=== PATIENT | female | born 1990 | race Caucasian/White ===

== ENCOUNTER 2018-09-15 08:02 | Observation (INO) ==
--- NOTE | 2018-09-15 08:15 | Emergency Department Note ---
Disposition Clinical Impression: Syncope Qualifiers: Encounter type: initial encounter Qualified Code(s): T67.1XXA - Disposition: Admitted As Inpatient Condition: Good Time of Disposition: 18:29 General Adult HPI - General Chief complaint: ED Seizure Stated complaint: Seizure Time Seen by Provider: 09/15/18 08:10 Source: patient, EMS Mode of arrival: EMS Limitations: no limitations Nursing Notes Reviewed: Yes Vital Signs Reviewed: Yes - History of Present Illness HPI Narrative: Patient is a 28-year-old female with past medical history of anxiety. She presents today via EMS due to possible syncope versus seizure. Patient states that she was on Wellbutrin until about a week and a half ago. She was transitioned over to Cymbalta 1 week ago. Today, she was up getting her kids ready for school. She was in her child's bedroom. She started to feel lightheaded, lower herself to her knees and then lost consciousness. She denied any chest pain, shortness of breath, palpitations, numbness tingling or weakness prior to this episode. Her children witnessed this event but are not present upon her arrival. She was unsure of any details while she was out or how long she was out, if she had any tonic-clonic activity. She denies any loss of bowel or bladder control, denies biting her time. She said she felt confused for a l ittle better after the event and then now currently has no symptoms other than a generalized headache. Denies any numbness, tingling, weakness, testing, shortness of breath, nausea, vomiting, fevers. No prior history of seizures. She denies any chance of . - Related Data Home Medications Medication Instructions Recorded Confirmed DULoxetine [Cymbalta] 30 mg PO DAILY 09/15/18 09/15/18 Paroxetine HCl [Paxil] 20 mg PO DAILY 09/15/18 09/15/18 RX: hydrOXYzine HCl [Hydroxyzine 25 mg PO TID PRN 09/15/18 09/15/18 HCl] Allergies Allergy/AdvReac Type Severity Reaction Status Date / Time meperidine [From Demerol] AdvReac See Verified 09/15/18 11:01 Comments All systems ED: reviewed and negative except as stated. Constitutional: Denies: fever Cardiovascular: Denies: chest pain Respiratory: Denies: cough, dyspnea Gastrointestinal: Denies: abdominal pain, nausea, vomiting, diarrhea Genitourinary: Denies: urgency Integumentary: Denies: rash Neurological: Reports: headache, other (Syncope versus seizure). Denies: numbness Psychiatric: Reports: anxiety Past Medical History - Past Medical History Attestation: Yes The following information was validated with the patient. 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 - Social History Smoking Status: Never smoker Smokeless Tobacco Status: No Alcohol use: Reports: none Drug use: Reports: none Physical Exam - General Limitations: no limitations General appearance: alert, in no apparent distress - Head Head exam: atraumatic, normocephalic, normal inspection - Eye Eye exam: Present: normal appearance, PERRL, EOMI - ENT ENT exam: normal exam, normal oropharynx, mucous membranes moist - Neck Neck exam: Present: normal inspection, full ROM, trachea midline - Chest Chest inspection: Present: normal inspection, symmetric chest wall rise - Respiratory Respiratory exam: Present: normal lung sounds bilaterally - Cardiovascular Cardiovascular exam: Present: regular rate, normal rhythm, normal heart sounds - Abdominal Exam Abdominal exam: Present: soft, Non-Tender. Absent: tenderness, distention, guarding, rebound, rigidity - Extremities Exam Extremities exam: Present: normal inspection, full ROM. Absent: tenderness, pedal edema - Neurological Exam Neurological exam: Present: alert, oriented X3, CN II-XII intact. Absent: motor sensory deficit - Expanded Neurological Exam Patient oriented to: Present: person, place, time Speech: Present: fluid speech Cranial nerves: EOM function (II, III, IV, ): Normal, facial sensation (V): Normal, facial palsy (VII): Normal, spinal accessory function (XI): Normal, tongue deviation (XII): Normal Cerebellar function: finger to nose: Normal Motor strength - LUE: 5/5 Motor strength - RUE: 5/5 Motor strength - LLE: 5/5 Motor strength - RLE: 5/5 Sensory exam upper extremity: light touch: Normal Sensory exam lower extremity: light touch: Normal Coma Scale Eye Opening: Spontaneous Coma Scale Motor Response: Obeys Commands Coma Scale Verbal Response: Oriented Coma Scale Total: 15 - Psychiatric Psychiatric exam: Present: normal affect, normal mood - Skin Skin exam: Present: warm, dry, intact, normal color Course Course Narrative: Vitals within normal limits. No focal neurologic deficits. Heart regular rate and rhythm, lungs clear to auscultation, abdomen soft and nontender. GCS 15. We will go ahead and order EKG, chest x-ray, basic blood work, troponin. EKG #1. 09/15/2018 at 08:09. Sinus rhythm. Rate 81. QRS 86. TX 138. QTC 422. Normal axis. No acute ST elevation or depression. Chest x-ray negative for any acute abnormality. No major lab abnormality. I spoke with Dr. العراقي about the patient's presentation. She did have another episode in the ED where she had some intermittent shaking of upper extremities that was more of a generalized tremor. She was immediately alert and oriented after this episode without any confusion. No focal neurologic deficits. I spoke with Dr. العراقي and he recommended obtaining MRI of head and brain with and without contrast. I discussed this with the patient and she was not comfortable with going home. We talked about admission. Dr. العراقي stated that if she was admitted, he would likely do an EEG. We will admit the patient for MRI and EEG. Patient has been accepted by hospitalist. Chest X-Ray 09/15/18 08:14 IMPRESSION: No acute abnormality. D/ / 09/15/2018 09:27:14 Sohail Villagomez MD / Gladis Osuna Interpreting Provider: Sohail Villagomez MD Brain MRI 09/15/18 10:31 IMPRESSION: Normal MRI of the brain without and with contrast. No evidence of mesial temporal sclerosis. No intracranial abnormality. D/ / Priscilla Rayo MD / Priscilla Rayo MD Interpreting Provider: Priscilla Rayo MD Vital Signs Temperature 98.2 F 09/15/18 08:07 Pulse Rate 81 09/15/18 08:07 Respiratory Rate 18 09/15/18 08:07 Blood Pressure 122/81 09/15/18 08:07 O2 Sat by Pulse Oximetry 99 09/15/18 08:07 Temperature 98.2 F 09/15/18 13:18 Pulse Rate 90 09/15/18 14:05 Respiratory Rate 17 09/15/18 13:18 Blood Pressure 103/70 09/15/18 13:18 O2 Sat by Pulse Oximetry 98 09/15/18 14:05 Oxygen Delivery Oxygen Delivery Room Air Medical Decision Making - [facility] Narrative Medical decision making narrative: Vitals within normal limits. No focal neurologic deficits. Heart regular rate and rhythm, lungs clear to auscultation, abdomen soft and nontender. GCS 15. We will go ahead and order EKG, chest x-ray, basic blood work, troponin. EKG #1. 09/15/2018 at 08:09. Sinus rhythm. Rate 81. QRS 86. TX 138. QTC 422. Normal axis. No acute ST elevation or depression. Chest x-ray negative for any acute abnormality. No major lab abnormality. I spoke with Dr. العراقي about the patient's presentation. She did have another episode in the ED where she had some intermittent shaking of upper extremities that was more of a generalized tremor. She was immediately alert and oriented after this episode without any confusion. No focal neurologic deficits. I spoke with Dr. العراقي and he recommended obtaining MRI of head and brain with and without contrast. I discussed this with the patient and she was not comfortable with going home. We talked about admission. Dr. العراقي stated that if she was admitted, he would likely do an EEG. We will admit the patient for MRI and EEG. Patient has been accepted by hospitalist. - Medical Records Medical records reviewed: Yes I reviewed the patient's medical records. - Lab Data Lab results reviewed: Yes I reviewed the patient's lab results. Result diagrams: 09/15/18 08:26 09/15/18 08:26 Lab Results 09/15/18 09/15/18 09/15/18 Range/Units 08:20 08:22 08:26 WBC 5.2 (4.3-11.1) K/mcL RBC 4.19 (3.82-4.97) M/mcL Hgb 13.2 (11.5-15.4) g/dL Hct 39.2 (35.3-44.9) % MCV 93.6 (83.0-100.0) fL MCH 31.5 (28.0-33.3) pg MCHC 33.7 (31.6-35.5) g/dL RDW 11.1 L (11.5-14.5) % Plt Count 236 (140-400) K/mcL MPV 9.7 (9.4-12.4) fL Immature Gran % 0.2 (0-4) % Seg Neutrophils % 60.1 % Lymphocytes % 31.7 % Monocytes % 6.2 % Eosinophils % 1.0 % Basophils % 0.8 % Neutrophils # 3.1 (1.6-8.9) K/mcL Lymphocytes # 1.7 (0.6-4.6) K/mcL Monocytes # 0.3 (0.0-1.3) K/mcL Eosinophils # 0.1 (0.0-0.6) K/mcL Basophils # 0.0 (0.0-0.2) K/mcL PT (9.4-12.1) Seconds INR APTT (26.0-36.0) Seconds Sodium (136-145) mEq/L Potassium (3.5-5.1) mEq/L Chloride (98-107) mEq/L Carbon Dioxide (23-29) mEq/L BUN (6-20) mg/dL Creatinine (0.60-1.20) mg/dL Est GFR ( Amer) (> 60) Est GFR (Non-Af Amer) (> 60) BUN/Creatinine Ratio (6-26) Glucose (70-105) mg/dL Calculated Osmolality (280-300) Calcium (8.6-10.3) mg/dL Creatine Kinase (30-223) Units/L Troponin I (< 0.04) ng/mL Urine Color Yellow (Yellow) Urine Clarity Turbid A (Clear) Urine pH 7.5 (5.0-8.0) pH Units Ur Specific [place] 1.010 (1.010-1.025) Urine Protein Negative (Neg-Trace) mg/dL Urine Glucose (UA) Normal (Normal) mg/dL Urine Ketones Negative (Negative) mg/dL Urine Blood Moderate H (Negative) Urine Nitrite Negative (Negative) Urine Bilirubin Negative (Negative) Urine Urobilinogen Normal (Normal) mg/dL Ur Leukocyte Esterase Moderate H (Negative) Urine Microscopic RBC 0-3 (0-3) per hpf Urine Microscopic WBC 15-30 H (0-3) per hpf Ur Squamous Epith Cells Many H (None-Few) per lpf Amorphous Sediment Many H (Few) Urine Bacteria Many H (None-Few) per hpf Ur Culture Indicated? NO. A (NO) Urine Test Negative (Negative) 09/15/18 09/15/18 09/15/18 Range/Units 08:26 08:26 08:26 WBC (4.3-11.1) K/mcL RBC (3.82-4.97) M/mcL Hgb (11.5-15.4) g/dL Hct (35.3-44.9) % MCV (83.0-100.0) fL MCH (28.0-33.3) pg MCHC (31.6-35.5) g/dL RDW (11.5-14.5) % Plt Count (140-400) K/mcL MPV (9.4-12.4) fL Immature Gran % (0-4) % Seg Neutrophils % % Lymphocytes % % Monocytes % % Eosinophils % % Basophils % % Neutrophils # (1.6-8.9) K/mcL Lymphocytes # (0.6-4.6) K/mcL Monocytes # (0.0-1.3) K/mcL Eosinophils # (0.0-0.6) K/mcL Basophils # (0.0-0.2) K/mcL PT 12.5 H (9.4-12.1) Seconds INR 1.1 APTT 34.4 (26.0-36.0) Seconds Sodium 140 (136-145) mEq/L Potassium 3.9 (3.5-5.1) mEq/L Chloride 106 (98-107) mEq/L Carbon Dioxide 27 (23-29) mEq/L BUN 8 (6-20) mg/dL Creatinine 0.62 (0.60-1.20) mg/dL Est GFR ( Amer) > 60 (> 60) Est GFR (Non-Af Amer) > 60 (> 60) BUN/Creatinine Ratio 13 (6-26) Glucose 95 (70-105) mg/dL Calculated Osmolality 288 (280-300) Calcium 9.5 (8.6-10.3) mg/dL Creatine Kinase 56 (30-223) Units/L Troponin I < 0.03 (< 0.04) ng/mL Urine Color (Yellow) Urine Clarity (Clear) Urine pH (5.0-8.0) pH Units Ur Specific [place] (1.010-1.025) Urine Protein (Neg-Trace) mg/dL Urine Glucose (UA) (Normal) mg/dL Urine Ketones (Negative) mg/dL Urine Blood (Negative) Urine Nitrite (Negative) Urine Bilirubin (Negative) Urine Urobilinogen (Normal) mg/dL Ur Leukocyte Esterase (Negative) Urine Microscopic RBC (0-3) per hpf Urine Microscopic WBC (0-3) per hpf Ur Squamous Epith Cells (None-Few) per lpf Amorphous Sediment (Few) Urine Bacteria (None-Few) per hpf Ur Culture Indicated? (NO) Urine Test (Negative) - Radiology Data Radiology results reviewed: Yes I reviewed the patient's radiology results.
--- NOTE | 2018-09-15 08:22 | Emergency Department Note ---
Disposition Clinical Impression: Blackout spell Disposition: Still a Patient Forms: ED Satisfaction Letter General Adult HPI - General Chief complaint: ED Seizure Stated complaint: Seizure Time Seen by Provider: 09/15/18 08:10 Source: EMS Limitations: no limitations - History of Present Illness Pain Scale: 0 - Related Data Home Medications Medication Instructions Recorded Confirmed Amitriptyline 08/28/15 08/28/15 Zoloft 08/28/15 08/28/15 Previous Rx's Medication Instructions Recorded Phenazopyridine HCl [Pyridium] 200 mg PO TID PRN #21 tablet 12/09/16 levoFLOXacin [Levaquin] 500 mg PO DAILY #7 tablet 12/09/16 Nitrofurantoin (BID) [Macrobid] 100 mg PO BID #14 capsule 06/21/17 Ondansetron [Zofran ODT] 8 mg SL TID PRN #12 tab.rapdis 06/21/17 Sucralfate [Carafate] 1 gm PO QIDAC #120 tablet 06/21/17 Ciprofloxacin [Cipro] 500 mg PO BID #14 tablet 08/06/17 Phenazopyridine HCl [Pyridium] 200 mg PO TIDAC #9 tab 08/06/17 Allergies Allergy/AdvReac Type Severity Reaction Status Date / Time meperidine [From Demerol] AdvReac See Verified 03/10/18 09:59 Comments Past Medical History - Past Medical History Medical history: Reports: no medical history, other Psychiatric history: Reports: anxiety 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 - Social History Smoking Status: Never smoker Smokeless Tobacco Status: No Alcohol use: Reports: none Drug use: Reports: none Physical Exam - General Limitations: no limitations General appearance: alert, in no apparent distress Course Vital Signs Temperature 98.2 F 09/15/18 08:07 Pulse Rate 81 09/15/18 08:07 Respiratory Rate 18 09/15/18 08:07 Blood Pressure 122/81 09/15/18 08:07 O2 Sat by Pulse Oximetry 99 09/15/18 08:07 Temperature 98.2 F 09/15/18 08:07 Pulse Rate 81 09/15/18 08:07 Respiratory Rate 18 09/15/18 08:07 Blood Pressure 122/81 09/15/18 08:07 O2 Sat by Pulse Oximetry 99 09/15/18 08:07 Oxygen Delivery Oxygen Delivery Room Air Attestation Statement - Attestation Attestation: I examined this patient and my medical decision-making was reviewed with the Resident Physician. I agree with the documented findings, disposition and treatment plan as described except to the extent set forth below. 28-year-old female presented to the ER for syncopal episode versus seizure activity. She states she has been under a lot of stress raising for kids by herself. This morning she sort of fell down toward knees and had an unresponsive episode. She denies any bowel or bladder incontinence. She denies any biting of the tongue. She did not really have a post ictal state. She has never had a seizure before. There is been recent change in her medications from Wellbutrin to Cymbalta in the last week. She takes this for depression and anxiety. She denies any active chest pain at this time. No shortness of breath. EKG was normal check screening labs
[2018-09-15 08:33] LABS: Bilirubin,Urine Negative (Negative); Blood,Urine Moderate (Negative); Clarity,Urine Turbid (Clear); Color,Urine Yellow (Yellow); Glucose,Urine (UA) Normal (Normal); Ketones,Urine Negative (Negative); Leukocyte Esterase,Urine Moderate (Negative); Nitrite,Urine Negative (Negative); PH,Urine 7.5 pH Units (5.0-8.0); Protein,Urine Negative (Neg-Trace); Urobilinogen,Urine Normal (Normal)
[2018-09-15 08:34] LABS: Bacteria,Urine Many per hpf (None-Few); Squamous Epithelial Cell,Urine Many per lpf (None-Few); WBC,Urine 15-30 per hpf (0-3)
[2018-09-15 08:46] LABS: Basophils % 0.8 %; Eosinophils # 0.1 K/mcL (0.0-0.6); Hematocrit 39.2 % (35.3-44.9); Hemoglobin 13.2 g/dL (11.5-15.4); Immature Granulocytes % 0.2 % (0-4); Lymphocytes # 1.7 K/mcL (0.6-4.6); Lymphocytes % 31.7 %; Mean Corpuscular HGB Conc 33.7 g/dL (31.6-35.5); Mean Corpuscular Hemoglobin 31.5 pg (28.0-33.3); Mean Corpuscular Volume 93.6 fL (83.0-100.0); Mean Platelet Volume 9.7 fL (9.4-12.4); Monocytes # 0.3 K/mcL (0.0-1.3); Monocytes % 6.2 %; Neutrophils # 3.1 K/mcL (1.6-8.9); Platelet Count 236 K/mcL (140-400); Red Blood Count 4.19 M/mcL (3.82-4.97); Red Cell Distribution Width 11.1 % (11.5-14.5); Segmented Neutrophils % 60.1 %
[2018-09-15 08:56] LABS: INR 1.1; Prothrombin Time 12.5 Seconds (9.4-12.1)
[2018-09-15 08:57] LABS: Amorphous Sediment,Urine Many (Few)
[2018-09-15 08:58] LABS: Activated Partial Thrombo Time 34.4 Seconds (26.0-36.0)
[2018-09-15 08:58] LABS: RBC,Urine 0-3 per hpf (0-3)
[2018-09-15 09:08] LABS: BUN/Creatinine Ratio 13 (6-26); Blood Urea Nitrogen 8 mg/dL (6-20); Calcium 9.5 mg/dL (8.6-10.3); Carbon Dioxide 27 mEq/L (23-29); Chloride 106 mEq/L (98-107); Glucose 95 mg/dL (70-105); Osmolality,Calculated 288 (280-300); Potassium 3.9 mEq/L (3.5-5.1); Sodium 140 mEq/L (136-145); eGFR For Non-African Americans > 60 (> 60)
[2018-09-15 09:09] LABS: Troponin I < 0.03 ng/mL (< 0.04)
--- NOTE | 2018-09-15 09:54 | Emergency Department Note ---
Disposition Clinical Impression: Blackout spell Disposition: Still a Patient Referrals: Hieu Cash MD [Primary Care Provider] - Forms: ED Satisfaction Letter General Adult HPI - General Chief complaint: ED Seizure Stated complaint: Seizure Time Seen by Provider: 09/15/18 08:10 Source: patient, EMS Mode of arrival: EMS Limitations: no limitations Nursing Notes Reviewed: Yes Vital Signs Reviewed: Yes - History of Present Illness HPI Narrative: ED ATTESTATION NOTE: I examined this patient and my medical decision-making was reviewed with the Resident Physician/SAFETY DIRECTOR/PA/Student. I have personally performed a face to face evaluation on this patient & I agree with the documented findings, disposition and treatment plan as described except to the extent set forth below. Patient was seen with emergency medicine resident Dr. Andrei Monique please see copy of his note for details of this encounter Briefly: 28-year-old female history of anxiety otherwise healthy no prior history of seizure disorder had supported be a seizure episode this morning with her right hand clenching and flexing 90 degrees the elbow, beating on her chest. The mother is accompanying the patient showed is from video which were reviewed. And then the resident of observe this in the ER during her evaluation. However upon further questioning she appeared to be oriented and responded appropriately. Lab work is within normal limits urinalysis is being sent for culture 15-30 WBCs per high-power field but no dysuria. Neurology is consulted. Disposition pending. Pain Scale: 5 - Related Data Home Medications Medication Instructions Recorded Confirmed Amitriptyline 08/28/15 08/28/15 Zoloft 08/28/15 08/28/15 Previous Rx's Medication Instructions Recorded Phenazopyridine HCl [Pyridium] 200 mg PO TID PRN #21 tablet 12/09/16 levoFLOXacin [Levaquin] 500 mg PO DAILY #7 tablet 12/09/16 Nitrofurantoin (BID) [Macrobid] 100 mg PO BID #14 capsule 06/21/17 Ondansetron [Zofran ODT] 8 mg SL TID PRN #12 tab.rapdis 06/21/17 Sucralfate [Carafate] 1 gm PO QIDAC #120 tablet 06/21/17 Ciprofloxacin [Cipro] 500 mg PO BID #14 tablet 08/06/17 Phenazopyridine HCl [Pyridium] 200 mg PO TIDAC #9 tab 08/06/17 Allergies Allergy/AdvReac Type Severity Reaction Status Date / Time meperidine [From Demerol] AdvReac See Verified 03/10/18 09:59 Comments Constitutional: Denies: fever Cardiovascular: Denies: chest pain Respiratory: Denies: cough, dyspnea Gastrointestinal: Denies: abdominal pain, nausea, vomiting, diarrhea Genitourinary: Denies: urgency Integumentary: Denies: rash Neurological: Reports: headache, other (Syncope versus seizure). 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 - Social History Smoking Status: Never smoker Smokeless Tobacco Status: No Alcohol use: Reports: none Drug use: Reports: none Physical Exam - General Limitations: no limitations General appearance: alert, in no apparent distress Course Vital Signs Temperature 98.2 F 09/15/18 08:07 Pulse Rate 81 09/15/18 08:07 Respiratory Rate 18 09/15/18 08:07 Blood Pressure 122/81 09/15/18 08:07 O2 Sat by Pulse Oximetry 99 09/15/18 08:07 Temperature 98.2 F 09/15/18 08:07 Pulse Rate 75 09/15/18 09:46 Respiratory Rate 18 09/15/18 08:07 Blood Pressure 120/91 09/15/18 09:46 O2 Sat by Pulse Oximetry 97 09/15/18 09:46 Oxygen Delivery Oxygen Delivery Room Air Medical Decision Making - Lab Data Result diagrams: 09/15/18 08:26 09/15/18 08:26 Lab Results 09/15/18 09/15/18 09/15/18 Range/Units 08:20 08:22 08:26 WBC 5.2 (4.3-11.1) K/mcL RBC 4.19 (3.82-4.97) M/mcL Hgb 13.2 (11.5-15.4) g/dL Hct 39.2 (35.3-44.9) % MCV 93.6 (83.0-100.0) fL MCH 31.5 (28.0-33.3) pg MCHC 33.7 (31.6-35.5) g/dL RDW 11.1 L (11.5-14.5) % Plt Count 236 (140-400) K/mcL MPV 9.7 (9.4-12.4) fL Immature Gran % 0.2 (0-4) % Seg Neutrophils % 60.1 % Lymphocytes % 31.7 % Monocytes % 6.2 % Eosinophils % 1.0 % Basophils % 0.8 % Neutrophils # 3.1 (1.6-8.9) K/mcL Lymphocytes # 1.7 (0.6-4.6) K/mcL Monocytes # 0.3 (0.0-1.3) K/mcL Eosinophils # 0.1 (0.0-0.6) K/mcL Basophils # 0.0 (0.0-0.2) K/mcL PT (9.4-12.1) Seconds INR APTT (26.0-36.0) Seconds Sodium (136-145) mEq/L Potassium (3.5-5.1) mEq/L Chloride (98-107) mEq/L Carbon Dioxide (23-29) mEq/L BUN (6-20) mg/dL Creatinine (0.60-1.20) mg/dL Est GFR ( Amer) (> 60) Est GFR (Non-Af Amer) (> 60) BUN/Creatinine Ratio (6-26) Glucose (70-105) mg/dL Calculated Osmolality (280-300) Calcium (8.6-10.3) mg/dL Troponin I (< 0.04) ng/mL Urine Color Yellow (Yellow) Urine Clarity Turbid A (Clear) Urine pH 7.5 (5.0-8.0) pH Units Ur Specific [place] 1.010 (1.010-1.025) Urine Protein Negative (Neg-Trace) mg/dL Urine Glucose (UA) Normal (Normal) mg/dL Urine Ketones Negative (Negative) mg/dL Urine Blood Moderate H (Negative) Urine Nitrite Negative (Negative) Urine Bilirubin Negative (Negative) Urine Urobilinogen Normal (Normal) mg/dL Ur Leukocyte Esterase Moderate H (Negative) Urine Microscopic RBC 0-3 (0-3) per hpf Urine Microscopic WBC 15-30 H (0-3) per hpf Ur Squamous Epith Cells Many H (None-Few) per lpf Amorphous Sediment Many H (Few) Urine Bacteria Many H (None-Few) per hpf Ur Culture Indicated? NO. A (NO) Urine Test Negative (Negative) 09/15/18 09/15/18 Range/Units 08:26 08:26 WBC (4.3-11.1) K/mcL RBC (3.82-4.97) M/mcL Hgb (11.5-15.4) g/dL Hct (35.3-44.9) % MCV (83.0-100.0) fL MCH (28.0-33.3) pg MCHC (31.6-35.5) g/dL RDW (11.5-14.5) % Plt Count (140-400) K/mcL MPV (9.4-12.4) fL Immature Gran % (0-4) % Seg Neutrophils % % Lymphocytes % % Monocytes % % Eosinophils % % Basophils % % Neutrophils # (1.6-8.9) K/mcL Lymphocytes # (0.6-4.6) K/mcL Monocytes # (0.0-1.3) K/mcL Eosinophils # (0.0-0.6) K/mcL Basophils # (0.0-0.2) K/mcL PT 12.5 H (9.4-12.1) Seconds INR 1.1 APTT 34.4 (26.0-36.0) Seconds Sodium 140 (136-145) mEq/L Potassium 3.9 (3.5-5.1) mEq/L Chloride 106 (98-107) mEq/L Carbon Dioxide 27 (23-29) mEq/L BUN 8 (6-20) mg/dL Creatinine 0.62 (0.60-1.20) mg/dL Est GFR ( Amer) > 60 (> 60) Est GFR (Non-Af Amer) > 60 (> 60) BUN/Creatinine Ratio 13 (6-26) Glucose 95 (70-105) mg/dL Calculated Osmolality 288 (280-300) Calcium 9.5 (8.6-10.3) mg/dL Troponin I < 0.03 (< 0.04) ng/mL Urine Color (Yellow) Urine Clarity (Clear) Urine pH (5.0-8.0) pH Units Ur Specific [place] (1.010-1.025) Urine Protein (Neg-Trace) mg/dL Urine Glucose (UA) (Normal) mg/dL Urine Ketones (Negative) mg/dL Urine Blood (Negative) Urine Nitrite (Negative) Urine Bilirubin (Negative) Urine Urobilinogen (Normal) mg/dL Ur Leukocyte Esterase (Negative) Urine Microscopic RBC (0-3) per hpf Urine Microscopic WBC (0-3) per hpf Ur Squamous Epith Cells (None-Few) per lpf Amorphous Sediment (Few) Urine Bacteria (None-Few) per hpf Ur Culture Indicated? (NO) Urine Test (Negative)
[2018-09-15] MEDS ORDERED: Gadolinium Contrast Agent (WT Based) IV PRN (10:31)
[2018-09-15] MEDS ORDERED: Naloxone 0.4 MG/ML INJ IVP PRN (11:15)
[2018-09-15] MEDS ORDERED: *HR* LORazepam 2 MG/ML VIAL IVP PRN (11:19)
--- NOTE | 2018-09-15 11:34 | Internal Med History&Physical ---
Date of Encounter: 09/15/18 Time of Encounter: 11:28 Internal Medicine - H&P: HPI Chief complaint: Seizures Admitted From: Home Plans for Post Hospital Care: Home History of present illness: Ms. Borrero is a 28 year old female with history of depression presented to the emergency department with complaint of seizures. As per patient she was waking up her children this morning and suddenly felt dizzy and lowered herself to the ground. She cannot recall what happened after she lowered herself to the ground until she woke up surrounded by her children. Her children videotaped the events and it shows that the patient was shaking her left upper extremity, eyes were closed and she was not responding to their questions. Seizure broke by itself after a few seconds. She was confused when she woke up however she does remember the events now. She denies tongue biting, foaming at the mouth, incontinence. She denies head trauma, similar symptoms, vision changes, palpitations or diaphoresis associated with the event. She has had no recent fevers, chills, dysuria, upper respiratory tract infections, sick contacts, leg edema, calf tenderness As per patient for depression she was on Wellbutrin until about a week and a half ago when her physician started her on Cymbalta. She denies similar symptoms on either medications. Mother is at bedside she reports that she has 2 siblings with seizure disorder. In the emergency department neurology was consulted and recommended MRI of the head with and without contrast, no antiepileptic drugs were recommended at this time. Neurology will follow-up the patient during admission with further recommendations. Past Med Surg Social Fam HX - Past Medical History Medical history: no medical history, other Additional medical history: SVT Psychiatric history: anxiety - Past Surgical History Additional surgical history: laproscopy for ovarian cysts - Social History Smoking Status: Never smoker Smokeless Tobacco Status: No Alcohol use: none Drug use: none Internal Medicine - H&P: Meds DULoxetine [Cymbalta] 30 mg PO DAILY 09/15/18 [History] Paroxetine HCl [Paxil] 20 mg PO DAILY 09/15/18 [History] hydrOXYzine HCl [Hydroxyzine HCl] 25 mg PO TID PRN 09/15/18 [History] Allergy/AdvReac Type Severity Reaction Status Date / Time meperidine [From Demerol] AdvReac See Verified 09/15/18 11:01 Comments All Systems PM: review of systems was performed and is negative for pertinent findings except as documented above in the HPI. - Constitutional Vitals: Temp Pulse Resp BP Pulse Ox 98.2 F 75 18 120/91 97 09/15/18 08:07 09/15/18 09:46 09/15/18 08:07 09/15/18 09:46 09/15/18 09:46 Exam: General: Patient is alert, oriented, no acute distress, Head: atraumatic, normocephalic, Eye: normal appearance, PERRL, no scleral icterus, no conjunctival injection ENT: mucous membranes moist, normal external ear exam Neck: normal inspection, trachea midline, full ROM, no carotid bruits Chest: normal inspection, symmetric chest rise Respiratory: Good respiratory effort. Bilateral breath sounds are clear without wheezing, crackles, or rhonchi. Cardiovascular: Regular rate and rhythm. s1 and s2 No clicks, rubs, gallops, or murmors. Abdomen: Bowel sounds present normoactive x-4 quadrants. Abdomen is soft, nondistended. no Epigastric tenderness. No guarding or rebound. No organomegaly noted, musculoskeletal: Spontaneously moving all extremities. no edema, no calf tenderness Skin: warm, dry, intact. Neuro: Alert and oriented x4. Sensation light touch intact. Cranial nerves 2- 12 is intact. Not aphasic, rapid hand movements intact, [id number] intact, Psych: Patient's affect is normal Internal Med - H&P Results - Labs CBC & Chem 7: 09/15/18 08:26 09/15/18 08:26 Labs: Short CBC 09/15/18 Range/Units 08:26 WBC 5.2 (4.3-11.1) K/mcL Hgb 13.2 (11.5-15.4) g/dL Hct 39.2 (35.3-44.9) % Plt Count 236 (140-400) K/mcL Neutrophils # 3.1 (1.6-8.9) K/mcL BMP 09/15/18 08:26 Sodium 140 Potassium 3.9 Chloride 106 Carbon Dioxide 27 BUN 8 Creatinine 0.62 Glucose 95 Calcium 9.5 Cardiac Enzymes 09/15/18 Range/Units 08:26 Troponin I < 0.03 (< 0.04) ng/mL Urine 09/15/18 Range/Units 08:20 Urine Color Yellow (Yellow) Urine Clarity Turbid A (Clear) Urine pH 7.5 (5.0-8.0) pH Units Ur Specific [place] 1.010 (1.010-1.025) Urine Protein Negative (Neg-Trace) mg/dL Urine Glucose (UA) Normal (Normal) mg/dL - EKG Data -: EKG Interpreted by Myself EKG shows normal: sinus rhythm (QT 422) - Impressions ITS Impressions Chest X-Ray 09/15/18 08:14 IMPRESSION: No acute abnormality. D/ / 09/15/2018 09:27:14 Sohail Villagomez MD / Gladis Osuna Interpreting Provider: Sohail Villagomez MD - Assessment and plan (1) Syncopal vertigo Current Visit: Yes Status: Acute Assessment and plan: cardiogenic rule out seizures Neurology was consulted in the emergency department will follow recommendations Follow MRI head with and without contrast Cardiac monitoring Orthostatic vitals Echocardiogram EEG as per neurology Neuro checks every 4 hours Ativan 2 mg every 6 hours when necessary for breakthrough seizures utox, TSH, Ucx, magnesium, Po4, cpk, HIV NS at 100 cc per hour Fall, aspiration, seizure precautions (2) Depression Current Visit: Yes Status: Acute Assessment and plan: will hold off of cymbalata for now until neurology has evaluated the patient continue as per neurology recommendations Qualifiers: Depression Type: major depressive disorder Major depression recurrence: unspecified whether recurrent Major depression episode severity: unspecified Qualified Code(s): F32.9 - Major depressive disorder, single episode, unspecified (3) DVT prophylaxis Current Visit: Yes Status: Acute Assessment and plan: heparin SC - Time Spent With Patient Total time spent is greater than 50% in coordination of care (as documented) at patient's floor/unit and/or counseling patient:
[2018-09-15] MEDS: 0.9 % Sodium Chloride 1,000 ML IVC SCH ×2 (12:50→23:18)
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
--- NOTE | 2018-09-15 15:32 | EEG/EMG/Oth Biometrics Report ---
EEG Procedure Report Date of procedure: 09/15/18 EEG Procedure: Routine EEG Procedure Note: This is a report of a 21 channel bipolar and referential montage EEG. A posterior dominant rhythm consisted of mixed beta and alpha frequencies. This rhythm is not reactive to eye opening. Hyperventilation is performed and does result in minor buildup. Does not otherwise alter the recording. There is no sleep architecture identified during the study. Photic stimulations performed and does not produce a driving response. The EKG rhythm strip reveals normal sinus rhythm at 96 bpm. Impressions: This EEG recording is within normal limits. There is no evidence of epileptiform activity identified during the study. Comment: Beta frequencies are indeed recognized as a normal variant, however may also be reflective of a host of metabolic conditions, anxiety, and medication effect. Please correlate clinically.
[2018-09-15 17:20] LABS: Amphetamine Screen,Urine Negative ng/mL (Cutoff=1000); Barbiturate Screen,Urine Negative ng/mL (Cutoff=200); Benzodiazepines Screen,Urine Negative ng/mL (Cutoff=200); Cannabinoid Screen,Urine Negative ng/mL (Cutoff = 50); Cocaine Screen,Urine Negative ng/mL (Cutoff= 300); Opiate Screen,Urine Negative ng/mL (Cutoff=300); Phencyclidine Screen,Urine Negative ng/mL (Cutoff=25)
[2018-09-15] MEDS: *HR* Heparin 5,000 UNIT/ML VIAL SQ SCH ×2 (19:17→20:52)
[2018-09-16 04:58] LABS: Basophils % 0.9 %; Eosinophils # 0.1 K/mcL (0.0-0.6); Eosinophils % 1.9 %; Hemoglobin 11.8 g/dL (11.5-15.4); Immature Granulocytes % 0.2 % (0-4); Lymphocytes # 2.1 K/mcL (0.6-4.6); Lymphocytes % 48.6 %; Mean Corpuscular HGB Conc 33.7 g/dL (31.6-35.5); Mean Corpuscular Volume 94.9 fL (83.0-100.0); Mean Platelet Volume 9.6 fL (9.4-12.4); Monocytes # 0.3 K/mcL (0.0-1.3); Monocytes % 5.8 %; Neutrophils # 1.8 K/mcL (1.6-8.9); Platelet Count 215 K/mcL (140-400); Red Blood Count 3.69 M/mcL (3.82-4.97); Red Cell Distribution Width 11.3 % (11.5-14.5); Segmented Neutrophils % 42.6 %
[2018-09-16 05:06] LABS: INR 1.2; Prothrombin Time 13.2 Seconds (9.4-12.1)
[2018-09-16 05:09] LABS: Activated Partial Thrombo Time 33.8 Seconds (26.0-36.0)
[2018-09-16 05:10] LABS: BUN/Creatinine Ratio 18 (6-26); Blood Urea Nitrogen 10 mg/dL (6-20); Calcium 8.5 mg/dL (8.6-10.3); Carbon Dioxide 25 mEq/L (23-29); Chloride 108 mEq/L (98-107); Glucose 92 mg/dL (70-105); Magnesium 1.8 mg/dL (1.6-2.6); Osmolality,Calculated 287 (280-300); Phosphorous 2.8 mg/dL (2.7-4.5); Potassium 3.9 mEq/L (3.5-5.1); Sodium 139 mEq/L (136-145); eGFR For Non-African Americans > 60 (> 60)
[2018-09-16 05:23] LABS: Thyroid Stimulating Hormone 1.243 mcIU/mL (0.340-5.600)
[2018-09-16] MEDS: *HR* Heparin 5,000 UNIT/ML VIAL SQ SCH (06:14)
--- NOTE | 2018-09-16 10:17 | Discharge Summary ---
- NOTES TO OUTPATIENT PROVIDER Notes to Outpatient Provider: Patient with history of recently diagnosed depression was admitted for concern of seizure. She was evaluated by Neurology as inpatient and her symptoms were attributed to non-epileptic, psychogenic seizure. Normal MRI brain and EEG. She was recommended to have psych evaluation inpatient per Neurology's recommendation but she states that she is in the process of seeing one as an outpatient and would like to be discharged home. Since there is a very low chance that it could be related to her cymbalta, it was advised to hold off on her cymbalta before she sees her PCP. Orders not resulted at time of discharge: Pending orders 09/15/18 16:45 Culture,Urine [RM] Stat Date of Encounter: 09/16/18 Time of Encounter: 08:00 - Discharge Diagnosis (1) DVT prophylaxis Priority: Secondary Status: Acute (2) Depression Priority: Secondary Status: Acute Qualifiers: Depression Type: major depressive disorder Major depression recurrence: unspecified whether recurrent Major depression episode severity: unspecified Qualified Code(s): F32.9 - Major depressive disorder, single episode, unspecified (3) Syncopal vertigo Priority: Secondary Status: Acute (4) Psychogenic nonepileptic seizure Priority: Primary Status: Acute Hospital course: Ms. Borrero is a 28 year old female with history of recently diagnosed depression was admitted for concern of seizure. She was evaluated by Neurology as inpatient and her symptoms were attributed to non-epileptic, psychogenic seizure. Normal MRI brain and EEG. She was recommended to have psych evaluation inpatient per Neurology's recommendation but she states that she is in the process of seeing one as an outpatient and would like to be discharged home. Since there is a very low chance that it could be related to her cymbalta, it was advised to hold off on her cymbalta before she sees her PCP. Discharge discussed with: patient - Time Spent with Patient Total time spent providing and/or coordinating discharge services: 31 mins - Discharge Medications Home Medications: Paroxetine HCl [Paxil] 20 mg PO DAILY 09/15/18 [History] hydrOXYzine HCl [Hydroxyzine HCl] 25 mg PO TID PRN 09/15/18 [History] Allergies/Adverse Reactions: Allergy/AdvReac Type Severity Reaction Status Date / Time meperidine [From Demerol] AdvReac See Verified 09/15/18 11:01 Comments Date of admission: 09/15/18 11:25 Primary care physician: Hieu Cash MD Consults: 09/15/18 10:32 Consult to Neurology [CONS] Stat Consulting Provider: [facility] Reason for Consult: seizure vs syncope Time Notified: 10:32 Call Completed: Yes 09/15/18 15:30 Consult to Interpret Exam [CONS] Routine Consulting Provider: Marc العراقي Consult to Interpret Exam: Interpret EEG - Constitutional Vitals: Temp Pulse Resp BP Pulse Ox 97.5 F L 85 15 118/77 100 09/16/18 06:57 09/16/18 06:57 09/16/18 06:57 09/16/18 06:57 09/16/18 06:57 Exam: General: Alert and oriented, not in acute distress. Cardiovascular:Normal S1 & S2, No JVD. Pulse regular. Lungs: clear to auscultation, no wheezes/rales Abdomen:Soft, non-tender, no rigidity. Extremities:No deformity or swelling Neurological: CN II-XII intact, power and sensation fully intact in all 4 limbs. No cerebellar signs, pronator drift -ve, Babinski downgoing bilaterally - Patient Status Disposition: Home, Self-Care Condition: Good Functional capacity at discharge: independent ambulation Overall status at discharge: patient is progressing back to baseline - Discharge Instructions Instructions: Depression (DC) Follow Up With: Hieu Cash MD [Primary Care Provider] - Additional Instructions: Follow up with psych as directed - Diet and Activity Activity: resume usual activities as tolerated Diet: regular diet
[2018-09-16 10:35] VITALS: BP 96/63
--- NOTE | 2018-09-16 19:37 | Electrocardiograph Report ---
[address] [address] Test Date: 2018-09-15 Pat Name: Josette Borrero Department: 114 Room: [facility] Gender: F Rn Complex Care: : 1990 Requested By: Andrei Monique Order Number: [id number] Reading MD: Aurelio Tyler Measurements Intervals [place] Rate: 81 P: 55 IL: 140 QRS: 26 QRSD: 86 T: 14 QT: 334 QTc: 372 Interpretive Statements SINUS RHYTHM Electronically Signed On 09-16-2018 19:35:31 EDT by Aurelio Tyler
== END 2018-09-16 11:57 | disposition home or self-care (01) ==
LOC: 3NENU 08:02 → EMEROOARM 08:02 → SUATTDRO 11:25 → 3NENU 12:54
PROVIDERS: ADMIT Internal Medicine; ATTEND Internal Medicine

== ENCOUNTER 2019-07-13 19:20 | Observation (INO) ==
[2019-07-13 20:12] LABS: Bilirubin,Urine Negative (Negative); Blood,Urine Negative (Negative); Clarity,Urine Clear (Clear); Color,Urine Yellow (Yellow); Glucose,Urine (UA) Normal (Normal); Ketones,Urine Negative (Negative); Leukocyte Esterase,Urine Small (Negative); Nitrite,Urine Negative (Negative); Protein,Urine Trace mg/dL (Neg-Trace); Urobilinogen,Urine Normal (Normal)
[2019-07-13 20:13] LABS: Bacteria,Urine Few per hpf (None-Few); Hyaline Casts,Urine None Seen per lpf (None-Few); RBC,Urine 0-3 per hpf (0-3); Squamous Epithelial Cell,Urine Many per lpf (None-Few)
[2019-07-13 20:22] LABS: Amphetamine Screen,Urine Negative ng/mL (Cutoff=1000); Barbiturate Screen,Urine Negative ng/mL (Cutoff=200); Benzodiazepines Screen,Urine Negative ng/mL (Cutoff=200); Cannabinoid Screen,Urine Negative ng/mL (Cutoff = 50); Cocaine Screen,Urine Negative ng/mL (Cutoff= 300); Opiate Screen,Urine Negative ng/mL (Cutoff=300); Phencyclidine Screen,Urine Negative ng/mL (Cutoff=25)
--- NOTE | 2019-07-13 21:01 | OB/GYN Progress Note ---
Date of Encounter: 07/13/19 Time of Encounter: 20:58 - Assessment and Plan (1) 24 weeks gestation of Current Visit: Yes Status: Acute (2) Encounter for suspected PROM, with rupture of membranes not found Current Visit: Yes Status: Acute Fern negative, sterile speculum exam shows thick white vaginal discharge of . UA does indicate UTI with symptoms we will treat for UTI given Rx for Macrobid twice a day 5 days discharged home with labor when to return to triage precautions. Patient verbalizes understanding Subjective - Subjective Interval history: 24+4 weeks gestation presents to triage with complaints of leaking of fluid. Patient states she started leaking about 4:00 this afternoon. Reports good movement, denies vaginal bleeding or contractions. Patient states she does not really think her water broke, she feels like she has a UTI, over the last 2 days has had dysuria and urgency Antepartum ROS: loss of fluid, movement normal, no vaginal bleeding, no contractions Objective - Vital Signs Vital Signs: Intake and Output 07/13/19 07/13/19 07/13/19 07:59 15:59 23:59 Other: Weight 91.8 kg Patient Weight 07/13/19 23:59 Weight 91.8 kg - Exam FHR: auscultation normal FHR comments: Baseline 145 Abdomen: Present: soft, gravid Cervical dilation: Internal os Closed/thick/high Comments: Fern negative - Labs Labs: Abnormal lab results Ur Specific [place] 1.030 (1.010-1.025) H 07/13/19 19:50 Ur Leukocyte Esterase Small (Negative) H 07/13/19 19:50 Urine Microscopic WBC 5-15 per hpf (0-3) H 07/13/19 19:50 Ur Squamous Epith Cells Many per lpf (None-Few) H 07/13/19 19:50 Ur Culture Indicated? YES (NO) A 07/13/19 19:50
== END 2019-07-13 20:58 | disposition home or self-care (01) ==
LOC: 1NENULAB
PROVIDERS: ADMIT Advanced Practice Midwife; ATTEND Advanced Practice Midwife

== ENCOUNTER 2019-08-02 19:18 | Observation (INO) ==
[2019-08-02 20:11] LABS: Bilirubin,Urine Negative (Negative); Blood,Urine Negative (Negative); Clarity,Urine Turbid (Clear); Color,Urine Yellow (Yellow); Glucose,Urine (UA) Normal (Normal); Ketones,Urine Trace mg/dL (Negative); Leukocyte Esterase,Urine Small (Negative); Nitrite,Urine Negative (Negative); PH,Urine 7.5 pH Units (5.0-8.0); Protein,Urine Negative (Neg-Trace); Specific Gravity,Urine 1.018 (1.010-1.025); Urobilinogen,Urine Normal (Normal)
[2019-08-02 20:13] LABS: Bacteria,Urine Few per hpf (None-Few); Hyaline Casts,Urine None Seen per lpf (None-Few); RBC,Urine 0-3 per hpf (0-3); Squamous Epithelial Cell,Urine Many per lpf (None-Few)
--- NOTE | 2019-08-02 20:20 | Event Note ---
Date of Encounter: 08/02/19 Time of Encounter: 20:15 Patient was brought to L&D due to complaint of seizure-like activity today once at 0630 and again at 1730 this evening. She is 27 weeks gestation. Now she reports pain in the right side of her head, her arm and her leg. heart tones were obtained per doppler at 150 bpm. Due to the nature of her complaint she was taken directly back to the ED for evaluation
== END 2019-08-02 19:30 | disposition other institution (70) ==
LOC: 1NENULAB
PROVIDERS: ADMIT Registered Nurse; ATTEND Registered Nurse

== ENCOUNTER → 2019-08-23 11:38 | Observation (INO) ==
[2019-08-23 10:57] LABS: Amphetamine Screen,Urine Negative ng/mL (Cutoff=1000); Barbiturate Screen,Urine Negative ng/mL (Cutoff=200); Benzodiazepines Screen,Urine Negative ng/mL (Cutoff=200); Cannabinoid Screen,Urine Negative ng/mL (Cutoff = 50); Cocaine Screen,Urine Negative ng/mL (Cutoff= 300); Opiate Screen,Urine Negative ng/mL (Cutoff=300); Phencyclidine Screen,Urine Negative ng/mL (Cutoff=25)
== END | disposition home or self-care (01) ==
LOC: 1NENULAB
PROVIDERS: ADMIT Registered Nurse; ATTEND Registered Nurse

== ENCOUNTER → 2019-08-29 19:56 | Observation (INO) ==
[2019-08-29 17:23] LABS: Amphetamine Screen,Urine Negative ng/mL (Cutoff=1000); Barbiturate Screen,Urine Negative ng/mL (Cutoff=200); Benzodiazepines Screen,Urine Negative ng/mL (Cutoff=200); Cannabinoid Screen,Urine Negative ng/mL (Cutoff = 50); Cocaine Screen,Urine Negative ng/mL (Cutoff= 300); Opiate Screen,Urine Negative ng/mL (Cutoff=300); Phencyclidine Screen,Urine Negative ng/mL (Cutoff=25)
[2019-08-29 17:26] LABS: Bilirubin,Urine Negative (Negative); Blood,Urine Negative (Negative); Clarity,Urine Cloudy (Clear); Color,Urine Yellow (Yellow); Glucose,Urine (UA) Normal (Normal); Ketones,Urine 80 mg/dL (Negative); Leukocyte Esterase,Urine Small (Negative); Nitrite,Urine Negative (Negative); Protein,Urine Trace mg/dL (Neg-Trace); Specific Gravity,Urine 1.029 (1.010-1.025); Urobilinogen,Urine Normal (Normal)
[2019-08-29 17:38] LABS: Bacteria,Urine Many per hpf (None-Few); Squamous Epithelial Cell,Urine Many per lpf (None-Few)
[2019-08-29 17:49] LABS: RBC,Urine 0-3 per hpf (0-3)
[~2019-08-29 19:56] MED LIST: Ringers Solution, Lactated 1,000 ML ONE
== END | disposition home or self-care (01) ==
LOC: 1NENULAB
PROVIDERS: ADMIT Advanced Practice Midwife; ATTEND Advanced Practice Midwife

== ENCOUNTER → 2019-09-20 11:30 | Observation (INO) ==
[2019-09-20 10:27] LABS: Bilirubin,Urine Negative (Negative); Blood,Urine Negative (Negative); Clarity,Urine Turbid (Clear); Color,Urine Yellow (Yellow); Glucose,Urine (UA) 250 mg/dL (Normal); Ketones,Urine Negative (Negative); Leukocyte Esterase,Urine Large (Negative); Nitrite,Urine Negative (Negative); Protein,Urine 30 mg/dL (Neg-Trace); Specific Gravity,Urine 1.027 (1.010-1.025); Urobilinogen,Urine Normal (Normal)
[2019-09-20 10:30] LABS: Bacteria,Urine Many per hpf (None-Few); Squamous Epithelial Cell,Urine Many per lpf (None-Few); WBC,Urine 50-100 per hpf (0-3)
[2019-09-20 10:36] LABS: Amphetamine Screen,Urine Negative ng/mL (Cutoff=1000); Barbiturate Screen,Urine Negative ng/mL (Cutoff=200); Benzodiazepines Screen,Urine Negative ng/mL (Cutoff=200); Cannabinoid Screen,Urine Negative ng/mL (Cutoff = 50); Cocaine Screen,Urine Negative ng/mL (Cutoff= 300); Opiate Screen,Urine Negative ng/mL (Cutoff=300); Phencyclidine Screen,Urine Negative ng/mL (Cutoff=25)
== END | disposition home or self-care (01) ==
LOC: 1NENULAB
PROVIDERS: ADMIT Advanced Practice Midwife; ATTEND Advanced Practice Midwife

== ENCOUNTER → 2019-09-26 04:00 | Observation (INO) ==
[2019-09-26 00:45] LABS: Bilirubin,Urine Negative (Negative); Blood,Urine Negative (Negative); Clarity,Urine Cloudy (Clear); Color,Urine Yellow (Yellow); Glucose,Urine (UA) Normal (Normal); Ketones,Urine Negative (Negative); Leukocyte Esterase,Urine Small (Negative); Nitrite,Urine Negative (Negative); Protein,Urine Negative (Neg-Trace); Specific Gravity,Urine 1.015 (1.010-1.025)
[2019-09-26 00:47] LABS: Bacteria,Urine Many per hpf (None-Few); Hyaline Casts,Urine None Seen per lpf (None-Few); Squamous Epithelial Cell,Urine Many per lpf (None-Few); WBC,Urine 15-30 per hpf (0-3)
[2019-09-26 02:23] LABS: Candida DNA Not Detected (Not Detect); Gardnerella DNA Not Detected (Not Detect); Trichomonas DNA Not Detected (Not Detect)
[2019-09-27 12:25] LABS: Amphetamine Screen,Urine Negative ng/mL (Cutoff=1000); Barbiturate Screen,Urine Negative ng/mL (Cutoff=200); Benzodiazepines Screen,Urine Negative ng/mL (Cutoff=200); Cannabinoid Screen,Urine Negative ng/mL (Cutoff = 50); Cocaine Screen,Urine Negative ng/mL (Cutoff= 300); Opiate Screen,Urine Negative ng/mL (Cutoff=300); Phencyclidine Screen,Urine Negative ng/mL (Cutoff=25)
== END | disposition home or self-care (01) ==
LOC: 1NENULAB
PROVIDERS: ADMIT Advanced Practice Midwife; ATTEND Advanced Practice Midwife

== ENCOUNTER 2019-10-21 22:11 | Inpatient (IN) ==
[2019-10-21] MEDS ORDERED: Metoclopramide 10 MG/2 ML VIAL IVP PRN (22:23)
[2019-10-21] MEDS ORDERED: Naloxone 0.4 MG/ML INJ IVP PRN (22:23)
[2019-10-21] MEDS ORDERED: Famotidine 20 MG/2 ML VIAL IVP PRN (22:23)
[2019-10-21] MEDS ORDERED: Ondansetron 4 MG/2 ML VIAL IVP PRN (22:23)
[2019-10-21] MEDS ORDERED: *HR* Nalbuphine 10 MG/ML AMPUL IVP PRN (22:23)
[2019-10-21] MEDS ORDERED: Ringers Solution, Lactated 1,000 ML IVC SCH (22:30)
[2019-10-21 23:35] LABS: Basophils % 0.2 %; Eosinophils # 0.1 K/mcL (0.0-0.6); Eosinophils % 0.9 %; Hemoglobin 10.5 g/dL (11.5-15.4); Immature Granulocytes % 0.4 % (0-4); Lymphocytes # 2.1 K/mcL (0.6-4.6); Lymphocytes % 25.9 %; Mean Corpuscular HGB Conc 32.8 g/dL (31.6-35.5); Mean Corpuscular Hemoglobin 28.8 pg (28.0-33.3); Mean Corpuscular Volume 87.7 fL (83.0-100.0); Mean Platelet Volume 11.4 fL (9.4-12.4); Monocytes # 0.7 K/mcL (0.0-1.3); Monocytes % 8.1 %; Neutrophils # 5.2 K/mcL (1.6-8.9); Platelet Count 228 K/mcL (140-400); Red Blood Count 3.65 M/mcL (3.82-4.97); Red Cell Distribution Width 13.5 % (11.5-14.5); Segmented Neutrophils % 64.5 %; White Blood Count 8.1 K/mcL (4.3-11.1)
[2019-10-21 23:42] LABS: Amphetamine Screen,Urine Negative ng/mL (Cutoff=1000); Barbiturate Screen,Urine Negative ng/mL (Cutoff=200); Benzodiazepines Screen,Urine Negative ng/mL (Cutoff=200); Cannabinoid Screen,Urine Negative ng/mL (Cutoff = 50); Cocaine Screen,Urine Negative ng/mL (Cutoff= 300); Opiate Screen,Urine Negative ng/mL (Cutoff=300); Phencyclidine Screen,Urine Negative ng/mL (Cutoff=25)
[2019-10-22] MEDS: Oxytocin 20 units/ LR 1000 mL 20 UNIT/1,000 ML BAG IVC SCH ×2 (00:33→12:01)
[2019-10-22] MEDS ORDERED: levETIRAcetam 250 MG TABLET PO SCH (00:45)
[2019-10-22] MEDS ORDERED: Epidural Premix (fent/bupiv) 110 ML EP SCH (01:30)
[2019-10-22] MEDS ORDERED: *HR* Phenylephrine 10 MG/ML VIAL ONE (07:52)
[2019-10-22] MEDS ORDERED: Bupivacaine-MPF 0.25% 10 ML VIAL ONE (07:52)
[2019-10-22] MEDS ORDERED: *HR* FentaNYL (PF) 100 MCG/2 ML VIAL ONE (07:52)
[2019-10-22] MEDS ORDERED: EPHEDrine 50 MG/ML VIAL ONE (08:22)
[2019-10-22] MEDS ORDERED: Rho Immune Globulin 1,500 UNIT SYRINGE IM PRN (13:24)
[2019-10-22] MEDS ORDERED: Acetaminophen 325 MG TABLET PO PRN (13:24)
[2019-10-22] MEDS ORDERED: Oxytocin 20 units/ LR 1000 mL 20 UNIT/1,000 ML BAG IVC SCH (13:24)
[2019-10-22] MEDS ORDERED: Benzocaine/Menthol 56 GM AEROSOL SPRAY TP PRN (13:24)
[2019-10-22] MEDS ORDERED: Ibuprofen 600 MG TABLET PO PRN (13:24)
[2019-10-22] MEDS ORDERED: Sennosides 8.6 MG TABLET PO PRN (13:24)
[2019-10-22] MEDS ORDERED: *HR* HYDROcodone/Acet 5/325 mg TABLET PO PRN (13:24)
[2019-10-22] MEDS ORDERED: Measles/Mumps/Rubella Vacc 0.5 ML VIAL SQ PRN (13:24)
[2019-10-22] MEDS ORDERED: Lanolin 7 G OINT...G. TP PRN (13:24)
[2019-10-22] MEDS: levETIRAcetam 250 MG TABLET PO SCH ×2 (15:35→20:17)
[2019-10-23 07:27] LABS: Basophils # 0.1 K/mcL (0.0-0.2); Basophils % 0.8 %; Eosinophils # 0.1 K/mcL (0.0-0.6); Eosinophils % 1.1 %; Hematocrit 28.8 % (35.3-44.9); Immature Granulocytes % 0.3 % (0-4); Lymphocytes # 1.7 K/mcL (0.6-4.6); Lymphocytes % 21.7 %; Mean Corpuscular HGB Conc 31.3 g/dL (31.6-35.5); Mean Corpuscular Hemoglobin 28.4 pg (28.0-33.3); Mean Corpuscular Volume 90.9 fL (83.0-100.0); Mean Platelet Volume 11.1 fL (9.4-12.4); Monocytes # 0.4 K/mcL (0.0-1.3); Monocytes % 5.7 %; Neutrophils # 5.4 K/mcL (1.6-8.9); Platelet Count 201 K/mcL (140-400); Red Blood Count 3.17 M/mcL (3.82-4.97); Red Cell Distribution Width 13.8 % (11.5-14.5); Segmented Neutrophils % 70.4 %; White Blood Count 7.6 K/mcL (4.3-11.1)
[2019-10-23 07:55] VITALS: BP 107/62
[2019-10-23] MEDS: levETIRAcetam 250 MG TABLET PO SCH (08:49)
[2019-10-23] MEDS ORDERED: Prenatal Vit/FA 1 EACH TABLET PO SCH (09:00)
== END 2019-10-23 11:06 | disposition home or self-care (01) | DRG 560 ==
LOC: 1NENULAB 22:11 → 1NENUOBS 10-22 13:22
PROVIDERS: ADMIT Obstetrics & Gynecology; ATTEND Obstetrics & Gynecology

== ENCOUNTER 2022-04-04 00:29 | Observation (INO) ==
[2022-04-04 00:41] VITALS: TEMP 98.3
[2022-04-04 01:08] LABS: Basophils % 0.4 %; Eosinophils # 0.1 K/mcL (0.0-0.6); Eosinophils % 1.1 %; Hematocrit 28.1 % (35.3-44.9); Immature Granulocytes % 0.6 % (0-4); Lymphocytes # 1.8 K/mcL (0.6-4.6); Lymphocytes % 21.8 %; Mean Corpuscular Hemoglobin 27.4 pg (28.0-33.3); Mean Corpuscular Volume 85.7 fL (83.0-100.0); Mean Platelet Volume 10.4 fL (9.4-12.4); Monocytes # 0.7 K/mcL (0.0-1.3); Monocytes % 8.4 %; Neutrophils # 5.5 K/mcL (1.6-8.9); Platelet Count 200 K/mcL (140-400); Red Blood Count 3.28 M/mcL (3.82-4.97); Red Cell Distribution Width 13.9 % (11.5-14.5); Segmented Neutrophils % 67.7 %; White Blood Count 8.1 K/mcL (4.3-11.1)
[2022-04-04 01:15] LABS: INR 1.1; Prothrombin Time 11.7 Seconds (9.4-12.1)
[2022-04-04 01:18] LABS: Activated Partial Thrombo Time 25.6 Seconds (26.0-36.0)
[2022-04-04 01:27] LABS: Protein/Creatinine Ratio,Urine 0.21 mg/mg (0.00-0.20)
[2022-04-04 01:29] LABS: Alanine Aminotransferase 6 Units/L (7-52); Albumin 3.4 g/dL (3.5-5.7); Albumin/Globulin Ratio 1.3 (1.1-2.2); Alkaline Phosphatase 80 Units/L (34-104); Aspartate Amino Transferase 12 Units/L (13-39); BUN/Creatinine Ratio 17 (6-26); Bilirubin,Total 0.2 mg/dL (0.3-1.0); Blood Urea Nitrogen 7 mg/dL (6-20); Calcium 8.5 mg/dL (8.6-10.3); Carbon Dioxide 21 mEq/L (23-29); Chloride 107 mEq/L (98-107); Globulin 2.7 g/dL (2.4-3.5); Glucose 123 mg/dL (70-105); Osmolality,Calculated 279 (280-300); Potassium 3.1 mEq/L (3.5-5.1); Sodium 135 mEq/L (136-145); Total Protein 6.1 g/dL (6.4-8.9); Troponin I < 0.03 ng/mL (< 0.04); eGFR For African Americans > 60 (> 60); eGFR For Non-African Americans > 60 (> 60)
[2022-04-04] MEDS ORDERED: Isovue-370 500 ML BOTTLE IVP ONE (01:38)
[2022-04-04 05:45] VITALS: BP 116/68; PULSE 98; O2SAT 98
== END 2022-04-04 07:19 | disposition home or self-care (01) ==
LOC: 1NENULAB 00:29 → EMEROOARM 00:29 → 1NENULAB 05:51
PROVIDERS: ADMIT Student in an Organized Health Care Education/Training Program; ATTEND Student in an Organized Health Care Education/Training Program

== ENCOUNTER → 2022-04-19 16:20 | Observation (INO) ==
[2022-04-19 14:45] LABS: Bacteria,Urine Few per hpf (None-Few); Bilirubin,Urine Negative (Negative); Blood,Urine Negative (Negative); Clarity,Urine Turbid (Clear); Color,Urine Light-Yellow (Yellow); Glucose,Urine (UA) Normal (Normal); Ketones,Urine Negative (Negative); Leukocyte Esterase,Urine Trace (Negative); Mucus,Urine Few per lpf (None-Few); Nitrite,Urine Negative (Negative); PH,Urine 7.5 pH Units (5.0-8.0); Protein,Urine Trace mg/dL (Neg-Trace); RBC,Urine 0-3 per hpf (0-3); Specific Gravity,Urine 1.015 (1.010-1.025); Squamous Epithelial Cell,Urine Moderate per hpf (None-Few); Urobilinogen,Urine Normal (Normal); WBC,Urine 0-3 per hpf (0-3)
[~2022-04-19 16:20] MED LIST changes: +FLUoxetine HCl 10 MG CAPSULE PO SCH; +Folic Acid 1 MG TABLET PO SCH; +Prenatal Vit/FA 1 EACH TABLET PO SCH; -Ringers Solution, Lactated 1,000 ML ONE; +lamoTRIgine 100 MG TABLET PO SCH
== END | disposition home or self-care (01) ==
LOC: 1NENULAB
PROVIDERS: ADMIT Obstetrics & Gynecology; ATTEND Obstetrics & Gynecology

== ENCOUNTER → 2022-04-28 15:00 | Observation (INO) ==
[~2022-04-28 15:00] MED LIST changes: +*HR* Nalbuphine 10 MG/ML AMPUL IV PRN; +Azithromycin 500 MG in 0.9 % Sodium Chloride 250 ML IVPB PRN; +EPHEDrine 50 MG/ML VIAL IVP PRN; +Epidural Premix (fent/bupiv) 110 ML EP SCH; -FLUoxetine HCl 10 MG CAPSULE PO SCH; +Famotidine 20 MG/2 ML VIAL IVP PRN; -Folic Acid 1 MG TABLET PO SCH; +Metoclopramide 10 MG/2 ML VIAL IVP PRN; +Naloxone 0.4 MG/ML INJ IVP PRN; +Ondansetron 4 MG/2 ML VIAL IVP PRN; -Prenatal Vit/FA 1 EACH TABLET PO SCH; +Ringers Solution, Lactated 1,000 ML ONE; -lamoTRIgine 100 MG TABLET PO SCH
== END | disposition home or self-care (01) ==
LOC: 1NENULAB
PROVIDERS: ADMIT Obstetrics & Gynecology; ATTEND Obstetrics & Gynecology

== ENCOUNTER 2022-04-28 21:31 | Inpatient (IN) ==
[~2022-04-28 21:31] MED LIST changes: -EPHEDrine 50 MG/ML VIAL IVP PRN; -Epidural Premix (fent/bupiv) 110 ML EP SCH; +Ringers Solution, Lactated 1,000 ML IVC SCH; -Ringers Solution, Lactated 1,000 ML ONE
[2022-04-28 21:36] LABS: Basophils % 0.3 %; Eosinophils # 0.1 K/mcL (0.0-0.6); Hematocrit 33.2 % (35.3-44.9); Hemoglobin 10.4 g/dL (11.5-15.4); Immature Granulocytes % 0.5 % (0-4); Lymphocytes # 1.5 K/mcL (0.6-4.6); Lymphocytes % 18.5 %; Mean Corpuscular HGB Conc 31.3 g/dL (31.6-35.5); Mean Corpuscular Volume 89.2 fL (83.0-100.0); Mean Platelet Volume 10.7 fL (9.4-12.4); Monocytes # 0.6 K/mcL (0.0-1.3); Monocytes % 7.3 %; Neutrophils # 5.7 K/mcL (1.6-8.9); Platelet Count 224 K/mcL (140-400); Red Blood Count 3.72 M/mcL (3.82-4.97); Red Cell Distribution Width 18.8 % (11.5-14.5); Segmented Neutrophils % 72.4 %; White Blood Count 7.9 K/mcL (4.3-11.1)
[2022-04-28 21:45] LABS: Amphetamine Screen,Urine Negative ng/mL (Cutoff=1000); Barbiturate Screen,Urine Negative ng/mL (Cutoff=200); Benzodiazepines Screen,Urine Negative ng/mL (Cutoff=200); Cannabinoid Screen,Urine Negative ng/mL (Cutoff = 50); Cocaine Screen,Urine Negative ng/mL (Cutoff= 300); Opiate Screen,Urine Negative ng/mL (Cutoff=300); Phencyclidine Screen,Urine Negative ng/mL (Cutoff=25)
[2022-04-28] MEDS ORDERED: Ringers Solution, Lactated 1,000 ML IVC SCH (21:45)
[2022-04-28] MEDS ORDERED: EPHEDrine 50 MG/ML VIAL IVP PRN (23:05)
[2022-04-28] MEDS ORDERED: Epidural Premix (fent/bupiv) 110 ML EP SCH (23:15)
[2022-04-28] MEDS ORDERED: Oxytocin 30 UNIT/503 ML BAG IVC ONE (23:21)
[2022-04-28] MEDS ORDERED: Oxytocin 30 UNIT/503 ML BAG IVC SCH (23:45)
[2022-04-29] MEDS: lamoTRIgine 100 MG TABLET PO SCH ×3 (00:06→20:18)
[2022-04-29] MEDS ORDERED: FLUoxetine 20 MG CAPSULE PO SCH (09:00)
[2022-04-29] MEDS ORDERED: *HR* FentaNYL (PF) 100 MCG/2 ML VIAL ONE (10:30)
[2022-04-29] MEDS ORDERED: hydrOXYzine pamoate 25 MG CAPSULE PO PRN (16:42)
[2022-04-29] MEDS ORDERED: Oxytocin 30 UNIT/503 ML BAG IVC SCH (16:42)
[2022-04-29] MEDS ORDERED: Lanolin 7 G OINT...G. TP PRN (16:42)
[2022-04-29] MEDS ORDERED: Benzocaine/Menthol 56 GM AEROSOL SPRAY TP PRN (16:42)
[2022-04-29] MEDS ORDERED: Ondansetron ODT 4 MG TAB.RAPDIS SL PRN (16:42)
[2022-04-29] MEDS ORDERED: OXYTOCIN/RINGERS LACTATE 10 UNIT/166.6 ML BAG IVC ONE (16:42)
[2022-04-29] MEDS: Ibuprofen 600 MG TABLET PO SCH (20:18)
[2022-04-29] MEDS: Acetaminophen 325 MG TABLET PO SCH (20:18)
[2022-04-30] MEDS: Ibuprofen 600 MG TABLET PO SCH (03:19)
[2022-04-30] MEDS: Acetaminophen 325 MG TABLET PO SCH ×2 (03:20→09:54)
[2022-04-30 03:47] LABS: Basophils % 0.4 %; Eosinophils # 0.1 K/mcL (0.0-0.6); Eosinophils % 1.1 %; Hematocrit 30.2 % (35.3-44.9); Hemoglobin 9.5 g/dL (11.5-15.4); Immature Granulocytes % 0.4 % (0-4); Lymphocytes # 1.7 K/mcL (0.6-4.6); Lymphocytes % 22.6 %; Mean Corpuscular HGB Conc 31.5 g/dL (31.6-35.5); Mean Corpuscular Hemoglobin 28.3 pg (28.0-33.3); Mean Corpuscular Volume 89.9 fL (83.0-100.0); Mean Platelet Volume 10.8 fL (9.4-12.4); Monocytes # 0.6 K/mcL (0.0-1.3); Monocytes % 7.7 %; Neutrophils # 5.1 K/mcL (1.6-8.9); Platelet Count 180 K/mcL (140-400); Red Blood Count 3.36 M/mcL (3.82-4.97); Red Cell Distribution Width 18.9 % (11.5-14.5); Segmented Neutrophils % 67.8 %; White Blood Count 7.6 K/mcL (4.3-11.1)
[2022-04-30 06:49] VITALS: BP 108/60; PULSE 88; TEMP 98.5; O2SAT 95
[2022-04-30] MEDS ORDERED: FLUoxetine 20 MG CAPSULE PO SCH (09:00)
[2022-04-30] MEDS ORDERED: Prenatal Vit/FA 1 EACH TABLET PO SCH (09:00)
[2022-04-30] MEDS: lamoTRIgine 100 MG TABLET PO SCH (09:54)
== END 2022-04-30 14:55 | disposition home or self-care (01) | DRG 805 ==
LOC: 1NENULAB → 1NENUOBS 04-29 16:34
PROVIDERS: ADMIT Obstetrics & Gynecology; ATTEND Obstetrics & Gynecology